=== PATIENT | female | born 1985 | race African-American/Black ===

== ENCOUNTER 2020-06-08 11:08 | Emergency (ER) | payer OTHER ==
[~2020-06-08] VITALS: Ht 165.1 cm; Wt 112.5 kg
--- NOTE | 2020-06-08 11:30 | NUR ---
ASSUMING PT CARE AT THIS TIME. PT AMBULATORY WITH STEADY GAIT TO ROOM. NADN. PT GIVEN GOWN AND ASKED TO CHANGE.
--- NOTE | 2020-06-08 11:44 | NUR ---
35 Y/O FEMALE PRESENTS TO ED WITH C/O SOB. "I COULDN'T BREATHE THIS MORNING. I'VE BEEN SOB OFF AND ON FOR THE LAST YEAR. I HAVEN'T HAD MY MEDS FOR ABOUT A MONTH. MY DR PRESCRIBED ME NEW MEDS A FEW WEEKS AGO AND I NEVER GOT THEM FILLED. I CALLED [facility] AND THEY NEVER GOT A RX. I TRIED TO CALL THE DR." NO C/O N/V/D, TRAUMA, SYNCOPE, CP. PT PLACED ON CONT PULSE OX,NIBP.
[2020-06-08 11:57] LABS: BASOPHILS # (AUTO) 0.01 x10^3/uL (0-0.1); BASOPHILS % (AUTO) 0 % (0-1); EOSINOPHILS # (AUTO) 0.22 x10^3/uL (0-0.4); EOSINOPHILS % (AUTO) 2 % (1-7); LYMPHOCYTES # (AUTO) 1.68 x10^3/uL (1-3.4); LYMPHOCYTES % (AUTO) 18 % (22-44); MD NO; MEAN CORPUSCULAR HEMOGLOBIN 27.4 pg (27.0-34.8); MEAN CORPUSCULAR HGB CONC 31.6 g/dL (32.4-35.8); MEAN CORPUSCULAR VOLUME 86.7 fL (80-100); MEAN PLATELET VOLUME 9.7 fL (7.4-10.4); MONOCYTES # (AUTO) 0.28 x10^3/uL (0.2-0.8); MONOCYTES % (AUTO) 3 % (2-9); NEUTROPHILS # (AUTO) 7.12 x10^3/uL (1.8-6.8); NEUTROPHILS % (AUTO) 76 % (42-75); PLATELET COUNT 314 x10^3/uL (130-400); RED BLOOD COUNT 4.42 x10^6/uL (3.82-5.3); RED CELL DISTRIBUTION WIDTH 19.4 % (9.6-15.2)
[2020-06-08 12:05] LABS: ALBUMIN 3.5 g/dL (3.4-5.0); ANION GAP 10 mmol/L (5-15); CALCIUM 9.2 mg/dL (8.5-10.1); CHLORIDE 110 mmol/L (98-107)
[2020-06-08 12:11] LABS: CREATININE 1.38 mg/dL (0.55-1.02); TROPONIN I < 0.015 ng/mL (0.000-0.045)
[2020-06-08 12:18] VITALS: BP 139/101
--- NOTE | 2020-06-08 12:42 | NUR ---
LATE ENTRY FOR 1200: BEDSIDE REPORT TO CYDNEY SENA RN.
--- NOTE | 2020-06-08 15:13 | NUR ---
Patient/Caregiver given discharge instructions and they have confirmed that they understand the instructions. Patient ambulatory with steady gait. PT LEFT WITH ALL PERSONAL BELONGINGS.
== END 2020-06-08 15:15 | disposition home or self-care (01) ==
LOC: ED 13:55
DX: I11.0 Hypertensive heart disease with heart failure (principal); I50.22 Chronic systolic (congestive) heart failure; R00.0 Tachycardia, unspecified; R94.31 Abnormal electrocardiogram [ECG] [EKG]
CPT/HCPCS: 36415; 71045; 80048; 82040; 83880; 84484; 85025; 93005; 99285